=== PATIENT | male | born 1975 | race Caucasian/White ===

== ENCOUNTER 2017-12-25 17:15 | Emergency (ER) | payer OTHER ==
[2017-12-25 17:46] VITALS: BMI 40.3
[2017-12-25 17:47] VITALS: TEMP 98.5
[2017-12-25] MEDS ORDERED: Albuterol-Ipratrop 3 mg / 0.5 (3 ml) UD IH STA ×2 (18:17)
[2017-12-25] MEDS ORDERED: Albuterol-Ipratrop 3 mg / 0.5 (3 ml) UD INH STA (18:17)
--- NOTE | 2017-12-25 18:18 | ED PDOC ---
HPI: CCC, URI, Sore Throat Time Seen by Provider: 12/25/17 18:02 Chief Complaint (Nursing): Cough, Cold, Congestion Chief Complaint (Provider): Cough, Cold, Congestion History Per: Patient History/Exam Limitations: no limitations Onset/Duration Of Symptoms: Days (x2 1/2 weeks) Current Symptoms Are (Timing): Still Present Additional Complaint(s): 42 year old male with medical history of a ruptured esophagus, who presents to the emergency department with a complaint of productive cough, wheezing, shortness of breath, nasal congestion, runny nose and left-sided pleurtic chest pain ongoing for 2 1/2 weeks. Denied any nausea, vomiting, abdominal pain, bloody cough or prior episodes. Patient was seen by PMD on 12/17/17 whom prescribed Augmentin, Symbicort and Prednisone to treat for asthmatic bronchitis but patient reported no relief after completing all courses of medications. PMD: Davin Knowles MD Past Medical History Reviewed: Nursing Documentation, Vital Signs Vital Signs: Last Vital Signs Temp 98.5 F 12/25/17 19:54 Pulse 108 H 12/25/17 19:54 Resp 16 12/25/17 19:54 BP 135/100 H 12/25/17 19:54 Pulse Ox 98 12/25/17 20:26 - Medical History PMH: Bronchitis Other PMH: ruptured esophagus - Surgical History Surgical History: Denies: No Surg Hx Other surgeries: esophagus repair - Family History Family History: States: Unknown Family Hx - Social History Alcohol: None Drugs: Denies - Immunization History Hx Tetanus Toxoid Vaccination: No Hx Influenza Vaccination: No Hx Pneumococcal Vaccination: No - Home Medications Home Medications: Ambulatory Orders Medication Instructions Recorded Ondansetron ODT [Zofran ODT] 1 odt PO BID PRN #6 odt 03/05/17 Pantoprazole Sodium [Protonix] 20 mg PO DAILY #20 ect 03/05/17 Albuterol Sulfate [Proair Hfa] 0.09 mg IH Q6H PRN #2 inh 12/25/17 Benzonatate [Tessalon Perles] 100 mg PO BID PRN 5 Days sgl 12/25/17 predniSONE [predniSONE Tab] 20 mg PO BID 5 Days tab 12/25/17 - Allergies Allergies/Adverse Reactions: Allergies Allergy/AdvReac Type Severity Reaction Status Date / Time turkish nuts Allergy ANAPHYLAXIS Uncoded 12/25/17 17:55 Review of Systems ROS Statement: Except As Marked, All Systems Reviewed And Found Negative ENT: Positive for: Nose Discharge, Nose Congestion Cardiovascular: Positive for: Other (left-sided pleurtic pain). Negative for: Chest Pain Respiratory: Positive for: Cough, Shortness of Breath, Sputum, Wheezing. Negative for: Hemoptysis Gastrointestinal: Negative for: Nausea, Vomiting, Abdominal Pain Physical Exam - Reviewed Nursing Documentation Reviewed: Yes Vital Signs Reviewed: Yes - Physical Exam Appears: Positive for: Non-toxic, No Acute Distress Skin: Positive for: Normal Color, Warm, DRY Eye Exam: Positive for: EOMI, Normal appearance, PERRL ENT: Positive for: Pharynx Is (within normal limits), Nasal Congestion. Negative for: Pharyngeal Erythema, Tonsillar Exudate Neck: Positive for: Normal, Painless ROM Cardiovascular/Chest: Positive for: Chest Non Tender, Tachycardia. Negative for : Regular Rate, Rhythm Respiratory: Positive for: Decreased Breath Sounds, Wheezing (bilateral). Negative for: Normal Breath Sounds, Respiratory Distress Back: Positive for: Normal Inspection. Negative for: L CVA Tenderness, R CVA Tenderness Extremity: Positive for: Normal ROM (upper/lower). Negative for: Tenderness, Pedal Edema (bilateral), Calf Tenderness (bilateral) Neurologic/Psych: Positive for: Alert, Oriented - ECG ECG: Positive for: Interpreted By Me, Viewed By Me ECG Rhythm: Positive for: Normal QRS, Normal ST Segment, Sinus Tachycardia O2 Sat by Pulse Oximetry: 98 (RA) Pulse Ox Interpretation: Normal - Radiology X-Ray: Read By Radiologist X-Ray Interpretation: No Acute Disease - Progress ED Course And Treament: 914: Stable. AAOx3. Pain free. Tolerated PO. No findings on cxr. Will rx prednisone and albuterol. Medical Decision Making Medical Decision Making: Initial Impression: Asthmatic bronchitis Initial Plan: * EXG * CXR * Duoneb 3ml INH * Influenza A B * Prednisone 60mg Time: 1839 --CXR FINDINGS: Examination limited by habitus. LUNGS: Mild linear atelectasis, left lung base. No focal consolidation. Please note that chest x-ray has limited sensitivity for the detection of pulmonary masses. PLEURA: No significant pleural effusion identified. No definite pneumothorax . CARDIOVASCULAR: Heart size appears within normal limits. OSSEOUS STRUCTURES: No acute osseous abnormality identified. VISUALIZED UPPER ABDOMEN: Unremarkable. OTHER FINDINGS: None. IMPRESSION: Linear atelectasis, left lung base. Scribe Attestation: Documented by Peg Guillen, acting as a scribe for Jadon Valera MD. Provider Scribe Attestation: All medical record entries made by the Scribe were at my direction and personally dictated by me. I have reviewed the chart and agree that the record accurately reflects my personal performance of the history, physical exam, medical decision making, and the department course for this patient. I have also personally directed, reviewed, and agree with the discharge instructions and disposition. Disposition - Clinical Impression Clinical Impression: Bronchitis - Patient ED Disposition Is Patient to be Admitted: No Counseled Patient/Family Regarding: Studies Performed, Diagnosis, Need For Followup, Rx Given - Disposition Referrals: Davin Knowles MD [Staff Provider] - 12/29/17 Disposition: Routine/Home Disposition Time: 21:15 Condition: STABLE Additional Instructions: Return if not better in 3 days. Prescriptions: Albuterol Sulfate [Proair Hfa] 0.09 mg IH Q6H PRN #2 inh PRN Reason: Wheezing Benzonatate [Tessalon Perles] 100 mg PO BID PRN 5 Days sgl PRN Reason: Cough predniSONE [predniSONE Tab] 20 mg PO BID 5 Days tab Instructions: Acute Bronchitis (ED) Forms: [employer] (Sudanese), [facility] ED School/Work Excuse
--- NOTE | 2017-12-25 18:41 | RAD ---
HISTORY: dyspnea COMPARISON: Chest x-ray performed 09/26/16 TECHNIQUE: Chest PA and lateral FINDINGS: Examination limited by habitus. LUNGS: Mild linear atelectasis, left lung base. No focal consolidation. Please note that chest x-ray has limited sensitivity for the detection of pulmonary masses. PLEURA: No significant pleural effusion identified. No definite pneumothorax . CARDIOVASCULAR: Heart size appears within normal limits. OSSEOUS STRUCTURES: No acute osseous abnormality identified. VISUALIZED UPPER ABDOMEN: Unremarkable. OTHER FINDINGS: None. IMPRESSION: Linear atelectasis, left lung base.
[2017-12-25] MEDS ORDERED: Albuterol-Ipratrop 3 mg / 0.5 (3 ml) UD ONE (18:45)
[2017-12-25 19:54] VITALS: BP 135/100; PULSE 108; RESP 16
[2017-12-25 20:26] VITALS: O2SAT 98
--- NOTE | 2017-12-26 11:24 | CARD ---
APPROVED REPORT EKG Measurement Heart [id number] <Conclusion> Sinus tachycardia Otherwise normal ECG
== END 2017-12-25 21:24 | disposition home or self-care (01) ==
LOC: H.ER 17:15
DX: J40 Bronchitis, not specified as acute or chronic (principal); J45.909 Unspecified asthma, uncomplicated

== ENCOUNTER 2019-02-01 15:29 | Emergency (ER) | payer OTHER ==
[2019-02-01 15:29] VITALS: BMI 39.1
[2019-02-01] MEDS ORDERED: Sodium Chloride 0.9% 1,000 ML IV STA ×2 (16:05→18:23)
[2019-02-01 16:18] LABS: BASO # 0.1 K/uL (0.0-0.2); BASO % 0.3 % (0.0-2.0); EOS # 0.1 K/uL (0.0-0.7); EOS % 0.9 % (0.0-4.0); HEMOGLOBIN 14.9 g/dL (12.0-18.0); LYMPH # 1.9 K/uL (1.0-4.3); LYMPH % 11.2 % (20.0-40.0); MEAN CELL VOLUME 92.5 fl (80.0-94.0); MEAN CORPUSCULAR HEMOGLOBIN 30.5 pg (27.0-31.0); MEAN PLATELET VOLUME 7.4 fl (7.2-11.7); MONO # 1.1 K/uL (0.0-0.8); MONO % 6.5 % (0.0-10.0); NEUT # 13.4 K/uL (1.8-7.0); NEUT % 81.1 % (50.0-75.0); RBC 4.9 Mil/uL (4.40-5.90); RED CELL DISTRIBUTION WIDTH 14.1 % (11.5-14.5); WHITE BLOOD COUNT 16.6 K/uL (4.8-10.8)
[2019-02-01 16:26] LABS: PROTHROMBIN TIME 11.8 Seconds (9.8-13.1)
[2019-02-01 16:28] LABS: BLOOD UREA NITROGEN 15 mg/dl (9-20); GFR NON-AFRICAN AMERICAN > 60
[2019-02-01 16:29] LABS: PARTIAL THROMBOPLASTIN TIME 33.2 Seconds (25.6-37.1)
--- NOTE | 2019-02-01 16:52 | ED PDOC ---
HPI: General Adult Time Seen by Provider: 02/01/19 15:50 Chief Complaint (Nursing): Chest Pain Chief Complaint (Provider): Chest Pain History Per: Patient History/Exam Limitations: no limitations Onset/Duration Of Symptoms: Days (x2 of body aches, x4 of left sided chest pain) Current Symptoms Are (Timing): Still Present Additional Complaint(s): 43 year old male presents to the ED with x2 days of generalized body aches and x4 days of left sided chest pain. Patient states he had a cyst removed from the back of his scalp x2 weeks ago. x6 days ago he was diagnosed with blood clots in his arms. 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 Patient reports pain to the right calf and notes enlarged veins. 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 PMD: [place] Past Medical History Reviewed: Historical Data, Nursing Documentation, Vital Signs Vital Signs: Last Vital Signs Temp 99.9 F H 02/01/19 15:33 Pulse 120 H 02/01/19 15:33 Resp 18 02/01/19 15:33 BP 129/86 02/01/19 15:33 Pulse Ox 99 02/01/19 15:33 - Medical History PMH: Bronchitis, Deep Vein Thrombosis (Left arm 01/26/19) Denies: Chronic Kidney Disease - Family History Family History: States: Unknown Family Hx - Immunization History Hx Tetanus Toxoid Vaccination: No Hx Influenza Vaccination: No Hx Pneumococcal Vaccination: No - Home Medications Home Medications: Ambulatory Orders Medication Instructions Recorded Rivaroxaban [Xarelto] 15 mg PO BID 7 Days tab 01/20/19 Rivaroxaban [Xarelto] 20 mg PO DAILY 30 Days tab 01/20/19 - Allergies Allergies/Adverse Reactions: Allergies Allergy/AdvReac Type Severity Reaction Status Date / Time cefazolin Allergy RASH Verified 01/26/19 10:06 botswanan nuts Allergy ANAPHYLAXIS Uncoded 12/25/17 17:55 Review of Systems Cardiovascular: Positive for: Chest Pain (left sided) Musculoskeletal: Positive for: Other (body aches, right calf pain with enlarged veins) Physical Exam - Reviewed Nursing Documentation Reviewed: Yes - Physical Exam Appears: Positive for: No Acute Distress (but tired) Head Exam: Positive for: ATRAUMATIC, NORMOCEPHALIC Skin: Positive for: Normal Color, Warm, Dry Eye Exam: Positive for: EOMI, Normal appearance, PERRL ENT: Positive for: Normal ENT Inspection Cardiovascular/Chest: Positive for: Regular Rate, Rhythm Respiratory: Positive for: Normal Breath Sounds. Negative for: Respiratory Distress Gastrointestinal/Abdominal: Positive for: Normal Exam, Soft. Negative for: Tenderness Extremity: Positive for: Normal ROM (upper and lower), Other (pain on right calf squeeze) Neurological/Psych: Positive for: Awake, Alert, Oriented - Laboratory Results Result Diagrams: 02/01/19 16:13 02/01/19 16:13 Lab Results: PT 11.8 Seconds (9.8-13.1) 02/01/19 16:13 INR 1.0 02/01/19 16:13 APTT 33.2 Seconds (25.6-37.1) 02/01/19 16:13 - ECG ECG Rhythm: Positive for: Sinus Tachycardia (with S1Q3T3 ) Rate: 113 O2 Sat by Pulse Oximetry: 99 (RA) Pulse Ox Interpretation: Normal Medical Decision Making Medical Decision Making: Time: 1540 Workup for PE vs viral syndrome workup for right leg DVT Plan: --IV fluids --Reassess patient Time: 1733 CT Chest Findings: Visualized portions of the inferior thyroid gland appear unremarkable. The mediastinal and hilar vascular structures appear within normal limits. The heart appears within normal limits of size. There is inadequate opacification of the pulmonary arteries due to missed bolus of the intravenous contrast precluding adequate evaluation for pulmonary e mbolus. Given this limitation, there are no visible intraluminal filling defects within the central pulmonary arteries to suggest central pulmonary embolism. Mild basilar atelectasis. No focal consolidation. No pleural effusion. No pneumothorax. No suspicious pulmonary nodules measuring greater than 5 mm. Limited visualized portions of the upper abdomen appear grossly unremarkable. Degenerative changes of the spine. Impression: There is inadequate opacification of the pulmonary arteries due to missed bolus of the intravenous contrast precluding adequate evaluation for pulmonary emb olus. Given this limitation, there are no visible intraluminal filling defects within the central pulmonary arteries to suggest central pulmonary embolism. Mild basilar atelectasis. Time: 182 Extremity US: FINDINGS: COMMON FEMORAL VEIN: Right CFV: Unremarkable. Left CFV: Unremarkable. SUPERFICIAL FEMORAL VEIN: Right SFV: Unremarkable. Left SFV: Unremarkable. POPLITEAL VEIN: Right Popliteal: Unremarkable. Left Popliteal: Unremarkable. POSTERIOR TIBIAL VEIN: Right PTV: Unremarkable. Left PTV: Unremarkable. OTHER FINDINGS: None. IMPRESSION: No evidence of deep venous thrombosis. Time:1857 --On reevaluation patent reports worsening throat pain. Provider notes oral pharynx has erythema, with tonsillar enlargement that is symmetric, no exudates or airway compromise. IV fluids have not been given due to peripheral line not working. Nurse putting in second line for fluids. Will get flu swabs and give Tylenol. Time: 1899 --Patient signed out to Dr. Lam, pending reevaluation. Scribe Attestation: Documented by Viky Arevalo, acting as a scribe for Consuelo Ramos MD. Provider Scribe Attestation: All medical record entries made by the Scribe were at my direction and personally dictated by me. I have reviewed the chart and agree that the record accurately reflects my personal performance of the history, physical exam, medical decision making, and the department course for this patient. I have also personally directed, reviewed, and agree with the discharge instructions and disposition. Disposition - Disposition Forms: [employer] (French)
[2019-02-01] MEDS ORDERED: Sodium Chloride 0.9% 50 ML IV ONE (16:53)
[2019-02-01] MEDS ORDERED: Iodixanol 320 MG/ML 100 ML BOTTLE IV ONE (16:53)
--- NOTE | 2019-02-01 17:38 | CT ---
Date of service: 02/01/2019 CTA chest PE protocol Indication: blood clot, chest pain Technique: Contiguous axial images were obtained through the chest with intravenous contrast enhancement. Sagittal and coronal reconstructions were generated and reviewed. This CT exam was performed using 1 or more of the following dose reduction techniques: Automated exposure control, adjustment of the MAA and/or kV according to patient size, and/or use of iterative reconstruction technique. IV contrast: 72 cc Visipaque 320 IV Radiation dose (DLP): 342.38 MGy-cm. Comparison: Chest x-ray performed 12/25/17 Findings: Visualized portions of the inferior thyroid gland appear unremarkable. The mediastinal and hilar vascular structures appear within normal limits. The heart appears within normal limits of size. There is inadequate opacification of the pulmonary arteries due to missed bolus of the intravenous contrast precluding adequate evaluation for pulmonary embolus. Given this limitation, there are no visible intraluminal filling defects within the central pulmonary arteries to suggest central pulmonary embolism. Mild basilar atelectasis. No focal consolidation. No pleural effusion. No pneumothorax. No suspicious pulmonary nodules measuring greater than 5 mm. Limited visualized portions of the upper abdomen appear grossly unremarkable. Degenerative changes of the spine. Impression: There is inadequate opacification of the pulmonary arteries due to missed bolus of the intravenous contrast precluding adequate evaluation for pulmonary embolus. Given this limitation, there are no visible intraluminal filling defects within the central pulmonary arteries to suggest central pulmonary embolism. Mild basilar atelectasis.
--- NOTE | 2019-02-01 18:27 | US ---
Date of service: 02/01/2019 PROCEDURE: Bilateral lower extremity venous duplex Doppler. HISTORY: h/o DVT new onset leg pain COMPARISON: None available. TECHNIQUE: Bilateral common femoral, superficial femoral, popliteal and posterior tibial veins were evaluated. Flow was assessed with color Doppler, compressibility, assessment of phasic flow and augmentation response. FINDINGS: COMMON FEMORAL VEIN: Right CFV: Unremarkable. Left CFV: Unremarkable. SUPERFICIAL FEMORAL VEIN: Right SFV: Unremarkable. Left SFV: Unremarkable. POPLITEAL VEIN: Right Popliteal: Unremarkable. Left Popliteal: Unremarkable. POSTERIOR TIBIAL VEIN: Right PTV: Unremarkable. Left PTV: Unremarkable. OTHER FINDINGS: None. IMPRESSION: No evidence of deep venous thrombosis.
--- NOTE | 2019-02-01 19:26 | ED PDOC ---
- Laboratory Results Result Diagrams: 02/01/19 16:13 02/01/19 16:13 Lab Results: PT 11.8 Seconds (9.8-13.1) 02/01/19 16:13 INR 1.0 02/01/19 16:13 APTT 33.2 Seconds (25.6-37.1) 02/01/19 16:13 - ECG O2 Sat by Pulse Oximetry: 99 (RA) Pulse Ox Interpretation: Normal Medical Decision Making Medical Decision Making: Time: 1899 --Patient signed out to this provider by Dr. Ramos, pending reevaluation. Time: 1999 --Re-evaluated patient at bedside who appears well, has no complaints at this time --All results given to patient, strongly advised rest, fluids, NSAIDs as needed, and tamiflu for clincial influenza --Strongly advised patient to followup with a PMD, states he sees Dr. Knowles for bronchitis, advised him that Dr. 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 Provider Scribe Attestation: All medical record entries made by the Scribe were at my direction and personally dictated by me. I have reviewed the chart and agree that the record accurately reflects my personal performance of the history, physical exam, medical decision making, and the department course for this patient. I have also personally directed, reviewed, and agree with the discharge instructions and disposition. Disposition - Clinical Impression Clinical Impression: Influenza-like symptoms - POA Present On Arrival: None - Disposition Referrals: Davin Knowles MD [Family Provider] - Disposition: Routine/Home Disposition Time: 20:07 Condition: IMPROVED Prescriptions: Ibuprofen [Motrin Tab] 600 mg PO Q6 #30 tab Oseltamivir Phosphate [Tamiflu] 75 mg PO BID 5 Days #10 capsule Instructions: Viral Pharyngitis, Flu Forms: [employer] (Belarusian)
[2019-02-01 20:08] VITALS: BP 139/65; PULSE 103; RESP 17; TEMP 99.3; O2SAT 95
--- NOTE | 2019-02-02 21:25 | CARD ---
APPROVED REPORT Date of service: 02/01/2019 EKG Measurement Heart [id number] <Conclusion> Sinus tachycardia Minimal voltage criteria for LVH, may be normal variant Nonspecific ST abnormality Abnormal ECG
== END 2019-02-01 20:36 | disposition home or self-care (01) ==
LOC: H.ER 15:29
DX: J11.1 Influenza due to unidentified influenza virus with other respiratory manifestations (principal); Z86.718 Personal history of other venous thrombosis and embolism; Z88.1 Allergy status to other antibiotic agents; J35.1 Hypertrophy of tonsils
CPT/HCPCS: 71275; 80048; 85025; 85610; 85730; 86850; 86900; 87070; 87430; 87804; 93005; 93970; 96361; 96374; 99285; J1885; J7030; Q9967

== ENCOUNTER 2019-02-23 14:31 | Emergency (ER) | payer OTHER ==
[2019-02-23 14:32] VITALS: BMI 39.1
[2019-02-23 15:12] VITALS: RESP 16
[2019-02-23] MEDS ORDERED: Sodium Chloride 0.9% 1,000 ML IV STA (15:19)
[2019-02-23 16:25] LABS: BASO % 0.4 % (0.0-2.0); EOS # 0.3 K/uL (0.0-0.7); EOS % 3.4 % (0.0-4.0); HEMOGLOBIN 14.2 g/dL (12.0-18.0); LYMPH # 2.4 K/uL (1.0-4.3); LYMPH % 28.4 % (20.0-40.0); MEAN CELL VOLUME 91.1 fl (80.0-94.0); MEAN CORPUSCULAR HEMOGLOBIN 31.1 pg (27.0-31.0); MEAN CORPUSCULAR HGB CONC 34.2 g/dL (33.0-37.0); MEAN PLATELET VOLUME 8.2 fl (7.2-11.7); MONO # 0.7 K/uL (0.0-0.8); MONO % 8.5 % (0.0-10.0); NEUT % 59.3 % (50.0-75.0); NRBC % 0.2 % (0.0-0.0); RBC 4.57 Mil/uL (4.40-5.90); WHITE BLOOD COUNT 8.4 K/uL (4.8-10.8)
[2019-02-23 16:30] LABS: INR 1.4
[2019-02-23 16:32] LABS: PARTIAL THROMBOPLASTIN TIME 41.6 Seconds (25.6-37.1)
[2019-02-23 16:39] LABS: BLOOD UREA NITROGEN 16 mg/dl (9-20); CALCIUM 9.6 mg/dL (8.4-10.2); GFR NON-AFRICAN AMERICAN > 60
--- NOTE | 2019-02-23 17:27 | US ---
Date of service: 02/23/2019 PROCEDURE: Upper Extremity Venous Duplex Exam HISTORY: left leg swelling PRIORS: None. TECHNIQUE: Bilateral upper extremity, internal jugular, subclavian, axillary, brachial, ulnar, radial, basilic and upper cephalic veins were evaluated. Flow was assessed with color Doppler, compressibility, assessment of phasic flow and augmentation response. Report prepared by anesthesiology technologist. FINDINGS: RIGHT: 1. Internal Jugular: 1.1. Compressibility - Fully compressible: Thrombus - None : Flow - Phasic: Augmentation -Normal: Reflux - None. 2. Subclavian: 2.1. Compressibility - Fully compressible: Thrombus - None : Flow - Phasic: Augmentation -Normal: Reflux - None. 3. Axillary: 3.1. Compressibility - Fully compressible: Thrombus - None : Flow - Phasic: Augmentation -Normal: Reflux - None. 4. Brachial: 4.1. Compressibility - Fully compressible: Thrombus - None: Flow - Phasic: Augmentation -Normal: Reflux - None. 5. Ulnar: 5.1. Compressibility - Fully compressible: Thrombus - None: Flow - Phasic: Augmentation -Normal: Reflux - None. 6. Radial: 6.1. Compressibility - Fully compressible: Thrombus - None: Flow - Phasic: Augmentation - Normal: Reflux - None. 7. Cephalic: 7.1. Not visible 8. Basilic: 8.1. Compressibility - Fully compressible: Thrombus - None: Flow - Phasic: Augmentation -Normal: Reflux - None. LEFT: 1. Internal Jugular: 1.1. Compressibility - Fully compressible: Thrombus - None : Flow - Phasic: Augmentation -Normal: Reflux - None. 2. Subclavian: 2.1. Compressibility - Fully compressible: Thrombus - None : Flow - Phasic: Augmentation -Normal: Reflux - None. 3. Axillary: 3.1. Compressibility - Fully compressible: Thrombus - None : Flow - Phasic: Augmentation -Normal: Reflux - None. 4. Brachial: 4.1. Compressibility - Fully compressible: Thrombus - None: Flow - Phasic: Augmentation -Normal: Reflux - None. 5. Ulnar: 5.1. Compressibility - Fully compressible: Thrombus - None: Flow - Phasic: Augmentation -Normal: Reflux - None. 6. Radial: 6.1. Compressibility - Fully compressible: Thrombus - None: Flow - Phasic: Augmentation - Normal: Reflux - None. 7. Cephalic: 7.1. Focal thrombus limited to the antecubital fossa region. 8. Basilic: 8.1. Compressibility - Fully compressible: Thrombus - None: Flow - Phasic: Augmentation -Normal: Reflux - None. OTHER FINDINGS: Right: None. Left: None. IMPRESSION: Right: No evidence of vein thrombosis of the right upper extremity with excellent venous flow. Normal valve function noted of the right side. Left: With the exception of superficial thrombophlebitis confined to a short segment of the left cephalic vein within the antecubital fossa, no evidence of vein thrombosis of the left upper extremity with excellent venous flow. Normal valve function noted of the left side.
--- NOTE | 2019-02-23 17:58 | ED PDOC ---
Upper Extremity Pain/Injury Time Seen by Provider: 02/23/19 15:17 Chief Complaint (Nursing): Upper Extremity Problem/Injury Chief Complaint (Provider): Upper Extremity Problem/Injury History Per: Patient History/Exam Limitations: no limitations Onset/Duration Of Symptoms: Days (x2 ) Current Symptoms Are (Timing): Still Present Additional Complaint(s): Patient is a 43 year old male with a past medical history of DVT and bronchitis, who presents to the emergency department complaining of new swelling over the past x2 days to the the left arm, associated with headache. Patient was diagnosed with DVT last month and has finished course of anticoagulant medication. He follows up with hematology and his PMD. Patient reports that swelling started yesterday and was associated with pain so severe that there was bulging around the watch. He also noticed other areas of tenderness and swelling to the proximal arm. His headache is diffuse and not associated with nausea, photophobia, weakness or numbness. He further denies chest pain or shortness of breath. PMD: Davin Knowles I Past Medical History Reviewed: Historical Data, Nursing Documentation, Vital Signs Vital Signs: Last Vital Signs Temp 98.8 F 02/23/19 15:11 Pulse 98 H 02/23/19 15:11 Resp 16 02/23/19 15:11 BP 122/85 02/23/19 15:11 Pulse Ox 97 02/23/19 15:11 - Medical History PMH: Bronchitis, Deep Vein Thrombosis (Left arm 01/26/19) Denies: Chronic Kidney Disease - Surgical History Surgical History: No Surg Hx - Family History Family History: States: Unknown Family Hx - Immunization History Hx Tetanus Toxoid Vaccination: No Hx Influenza Vaccination: No Hx Pneumococcal Vaccination: No - Home Medications Home Medications: Ambulatory Orders Medication Instructions Recorded Rivaroxaban [Xarelto] 15 mg PO BID 7 Days tab 01/20/19 Rivaroxaban [Xarelto] 20 mg PO DAILY 30 Days tab 01/20/19 Ibuprofen [Motrin Tab] 600 mg PO Q6 #30 tab 02/01/19 Oseltamivir Phosphate [Tamiflu] 75 mg PO BID 5 Days #10 capsule 02/01/19 - Allergies Allergies/Adverse Reactions: Allergies Allergy/AdvReac Type Severity Reaction Status Date / Time cefazolin Allergy RASH Verified 01/26/19 10:06 ethiopian nuts Allergy ANAPHYLAXIS Uncoded 12/25/17 17:55 Review of Systems ROS Statement: Except As Marked, All Systems Reviewed And Found Negative Eyes: Negative for: Other (photophobia) Cardiovascular: Negative for: Chest Pain Respiratory: Negative for: Shortness of Breath Gastrointestinal: Negative for: Nausea Musculoskeletal: Positive for: Arm Pain (and swelling) Neurological: Positive for: Headache. Negative for: Weakness, Numbness Physical Exam - Reviewed Nursing Documentation Reviewed: Yes Vital Signs Reviewed: Yes - Physical Exam Appears: Positive for: Non-toxic, No Acute Distress Head Exam: Positive for: ATRAUMATIC, NORMOCEPHALIC Skin: Positive for: Normal Color, Warm, Dry Eye Exam: Positive for: Normal appearance, EOMI, PERRL ENT: Positive for: Normal ENT Inspection Neck: Positive for: Normal, Painless ROM, Supple Cardiovascular/Chest: Positive for: Regular Rate, Rhythm. Negative for: Murmur Respiratory: Positive for: Normal Breath Sounds. Negative for: Respiratory Dist ress Gastrointestinal/Abdominal: Positive for: Normal Exam, Soft. Negative for: Tenderness Back: Positive for: Normal Inspection. Negative for: L CVA Tenderness, R CVA Tenderness, Vertebral Tenderness Extremity: Positive for: Other (distal posterior left arm has 1cm by 1cm area of hard swelling; tenderness to palpation; thready maximino palpable to antecubital fossa) Neurological/Psych: Positive for: Alert, Oriented - Laboratory Results Result Diagrams: 02/23/19 15:40 02/23/19 15:40 Lab Results: PT 16.0 Seconds (9.8-13.1) H 02/23/19 15:40 INR 1.4 02/23/19 15:40 APTT 41.6 Seconds (25.6-37.1) H 02/23/19 15:40 - ECG O2 Sat by Pulse Oximetry: 97 (RA) Pulse Ox Interpretation: Normal Medical Decision Making Medical Decision Making: Time: 1540 A/P: --Work up for possible left arm DVT, thrombophlebitis and treatment for headache. Will order labs, upper extremity US, warm compress of left arm, IV fluids, Toradol and reassess patient. Plan: --Type and screen --BMP --CBC with differential --PT --PTT --Upper ext. US --Toradol 30 mg IVP --Reglan 10 mg IVP --Sodium chloride 1,000 ml 1900 Pt with improved symptoms. US shows Thrombophlebitis but no DVT of the upper extremities. Headache improved with medications. Return parameters discussed including chest pain, trouble breathing, or worsened swelling/CP. Scribe Attestation: Documented by Kojo Leon, acting as a scribe Zabrina Ramos MD. Provider Scribe Attestation: All medical record entries made by the Scribe were at my direction and personally dictated by me. I have reviewed the chart and agree that the record accurately reflects my personal performance of the history, physical exam, medical decision making, and the department course for this patient. I have also personally directed, reviewed, and agree with the discharge instructions and disposition. Disposition - Clinical Impression Clinical Impression: Thrombophlebitis arm - Disposition Disposition: Routine/Home Disposition Time: 18:50 Condition: IMPROVED Additional Instructions: Follow up with primary medical doctor in 3 to 5 days. Apply warm compresses to the arm. Return to the emergency department immediately if you develop chest pain, trouble breathing/shortness of breath, worsened swelling or pain to the arm. Take Motrin every 6 hours and apply warm compresses for swelling and pain of the arm. Instructions: Phlebitis (DC) Forms: [employer] (Mauritanian), [facility] School/Work Excuse Print Language: MALTESE
[2019-02-23 19:09] VITALS: BP 100/70; PULSE 72; TEMP 98
[2019-02-23 19:10] VITALS: O2SAT 97
== END 2019-02-23 19:08 | disposition home or self-care (01) ==
LOC: H.ER 14:31
DX: I80.8 Phlebitis and thrombophlebitis of other sites (principal); Z86.718 Personal history of other venous thrombosis and embolism; Z88.1 Allergy status to other antibiotic agents
CPT/HCPCS: 80048; 85025; 85610; 85730; 86850; 86900; 93970; 96361; 96374; 96375; 99284; J1885; J2765; J7030